=== PATIENT | female | born 1990 ===

== ENCOUNTER 2025-02-23 08:32 | Emergency (ER) | payer OTHER ==
[~2025-02-23] VITALS: Ht 165.1 cm; Wt 84.8 kg
[2025-02-23] MEDS ORDERED: DEXAMETHASONE SOD PHOS INJ 4 MG/ML SDV ONE (09:46)
[2025-02-23] MEDS: DEXAMETHASONE SOD PHOS INJ 4 MG/ML SDV IV ONE ×2 (09:49→10:02)
[2025-02-23] MEDS: LORAZEPAM INJ 2 MG/ML VIAL IV ONE (09:49)
[2025-02-23] MEDS: Morphine 4mg INJECTION 4 MG/ML INJ IV ONE (09:50)
[2025-02-23] MEDS: KETOROLAC TROMETHAMINE 30 MG/ML VIAL IV STA (09:50)
[2025-02-23] MEDS ORDERED: ONDANSETRON ODT4 MG PO (10:59)
[2025-02-23] MEDS ORDERED: CYCLOBENZAPRINE5 MG PO (11:02)
[2025-02-23] MEDS ORDERED: HYDROCODON-ACE1 EA11 PO (11:03)
[2025-02-23] MEDS: ONDANSETRON HCL INJ 2MG/ML 2ML 2 MG/ML VIAL IV STA (11:08)
[2025-02-23 11:10] VITALS: PULSE 53; RESP 14; TEMP 97.5; O2SAT 99
== END 2025-02-23 11:21 | disposition home or self-care (01) ==
LOC: FSED 08:39
DX: S39.012A Strain of muscle, fascia and tendon of lower back, initial encounter (principal); G89.29 Other chronic pain
CPT/HCPCS: 81003; 81025; 96374; 96375; 99284; J1100; J1885; J2060; J2270; J2405